=== PATIENT | male | born 1965 | race Caucasian/White ===

== ENCOUNTER → 2021-10-19 | Outpatient (CLI) | payer BC ==
[~2021-10-19] MED LIST: CEPH500 PO; HYDACE5 PO
[2021-10-19 13:15] LABS: BASOPHILS ABSOLUTE AUTO 0.04 K/mm3 (0.00-0.23); BASOPHILS PERCENT AUTO 1 % (0-2); EOSINOPHILS ABSOLUTE AUTO 0.06 K/mm3 (0.00-0.68); EOSINOPHILS PERCENT AUTO 1 % (0-6); Hematocrit 33.7 % (37.0-53.0); Hemoglobin 11.3 g/dL (13.5-17.5); IMMATURE GRAN ABSOLUTE AUTO 0.02 K/mm3 (0.00-0.10); IMMATURE GRAN PERCENT AUTO 0 % (0-1); LYMPHOCYTES ABSOLUTE AUTO 1.75 K/mm3 (0.84-5.20); LYMPHOCYTES PERCENT AUTO 29 % (21-46); MONOCYTES ABSOLUTE AUTO 0.67 K/mm3 (0.16-1.47); MONOCYTES PERCENT AUTO 11 % (4-13); Mean Corpuscular HGB 29.1 pg (26.0-34.0); Mean Corpuscular HGB Conc 33.5 g/dL (31.5-36.5); Mean Corpuscular Volume 87 fL (80-100); NEUTROPHILS ABSOLUTE AUTO 3.48 K/mm3 (1.96-9.15); NEUTROPHILS PERCENT AUTO 58 % (41-73); RDW Coefficient Variation 16.9 % (11.7-14.2); RDW Standard Deviation 52.6 fL (35.1-46.3); Red Blood Cell Count 3.88 M/mm3 (4.30-5.90); White Blood Cell Count 6.02 K/mm3 (4.00-11.30)
[2021-10-19 13:25] LABS: Alanine Aminotransfer (ALT/SGP 52 U/L (12-78); Albumin, Blood 3.7 g/dL (3.4-5.0); Albumin/Globulin Ratio 0.9 (0.8-1.8); Alk Phos 137 U/L (40-126); Anion Gap 15 mmol/L (6-16); Aspartate Aminotrans (AST/SGOT 121 U/L (12-37); Bilirubin, Total 0.7 mg/dL (0.1-1.0); Blood Urea Nitrogen 9 mg/dL (8-24); Bun/Creatinine Ratio 10.5 (12.0-20.0); CO2, Blood 26 mmol/L (21-32); Calcium, Blood 8.7 mg/dL (8.5-10.1); Chloride, Blood 98 mmol/L (98-108); Creatinine, Blood 0.86 mg/dL (0.60-1.20); Glomerular Filtration Rate >60 (60-); Glucose, Blood 122 mg/dL (70-99); Potassium, Blood 3.3 mmol/L (3.5-5.5); Sodium, Blood 139 mmol/L (136-145); Total Protein, Blood 7.7 g/dL (6.4-8.2)
[2021-10-19 13:55] LABS: Platelet Count 84 K/mm3 (150-400)
== END ==
LOC: LAB SHORT 13:10 → LAB 13:10
PROVIDERS: General Practice
DX: S20.212A Contusion of left front wall of thorax, initial encounter (principal)
CPT/HCPCS: 80053; 85025

== ENCOUNTER 2022-12-05 19:25 | Inpatient (IN) | payer OTHER ==
[~2022-12-05] VITALS: Ht 170.2 cm; Wt 70.3 kg
[2022-12-05 19:48] LABS: BASOPHILS ABSOLUTE AUTO 0.01 K/mm3 (0.00-0.23); BASOPHILS PERCENT AUTO 0 % (0-2); EOSINOPHILS PERCENT AUTO 0 % (0-6); Hematocrit 31.9 % (37.0-53.0); Hemoglobin 10.3 g/dL (13.5-17.5); IMMATURE GRAN ABSOLUTE AUTO 0.09 K/mm3 (0.00-0.10); IMMATURE GRAN PERCENT AUTO 1 % (0-1); LYMPHOCYTES ABSOLUTE AUTO 1.37 K/mm3 (0.84-5.20); LYMPHOCYTES PERCENT AUTO 14 % (21-46); MONOCYTES ABSOLUTE AUTO 0.88 K/mm3 (0.16-1.47); MONOCYTES PERCENT AUTO 9 % (4-13); Mean Corpuscular HGB 25.1 pg (26.0-34.0); Mean Corpuscular HGB Conc 32.3 g/dL (31.5-36.5); Mean Corpuscular Volume 78 fL (80-100); Mean Platelet Volume 11.7 fL (9.1-12.4); NEUTROPHILS ABSOLUTE AUTO 7.44 K/mm3 (1.96-9.15); NEUTROPHILS PERCENT AUTO 76 % (41-73); NRBC ABSOLUTE 0.04 K/mm3 (0.00-0.02); NRBC Auto 0.4 /100 WBC (0.0-0.2); Platelet Count 102 K/mm3 (150-400); RDW Coefficient Variation 18.2 % (11.7-14.2); RDW Standard Deviation 49.9 fL (35.1-46.3); White Blood Cell Count 9.79 K/mm3 (4.00-11.30)
[2022-12-05 20:08] LABS: Albumin, Blood 3.7 g/dL (3.4-5.0); Albumin/Globulin Ratio 0.9 (0.8-1.8); Bilirubin, Total 0.7 mg/dL (0.1-1.0); Bun/Creatinine Ratio 20.9 (12.0-20.0); Calcium, Blood 11.8 mg/dL (8.5-10.1); Creatinine, Blood 1.29 mg/dL (0.60-1.20); Globulin, Blood 4.2 g/dL (2.2-4.0); Potassium, Blood 2.7 mmol/L (3.5-5.5); Total Protein, Blood 7.9 g/dL (6.4-8.2)
[2022-12-05 21:57] LABS: International Normalized Ratio 1.04; Prothrombin Time Results 10.9 Sec (9.7-11.5)
[2022-12-06] VITALS (23 sets, daily range): BP systolic 81–154; BP diastolic 58–98
[2022-12-06 00:07] LABS: Calcium, Blood 10.1 mg/dL (8.5-10.1); Creatinine, Blood 1.04 mg/dL (0.60-1.20); Magnesium, Blood 1.9 mg/dL (1.6-2.4); Potassium, Blood 3.1 mmol/L (3.5-5.5)
--- NOTE | 2022-12-06 00:15 | NUR ---
ADMIT NOTE; PT ARRIVES FROM THE ED VIA WHEELCHAIR AND IS ABLE TO AMBULATE WITH A 1 PERSON ASSIST DUE TO TRRMORS. THE PT HAS MODERATE-SEVERE TREMORS ON ADMIT. THE PT ALSO ENDORSES A SLIGHT HEADACHE. THE PT DENIES ANY SOB, CHEST PAIN/PRESSURE OR NAUSEA/VOMITING. THE PT HAS SEIZURE PADS IN PLACE, THE BED IN THE LOWEST POSITION AND BED ALARM ON. THE PT IS CURRENTLY LAYING IN BED WITH THE BED IN THE LOWEST POSITION AND THE CALL LIGHT AT BEDSIDE.
[2022-12-06] MEDS ORDERED: OMEP20ER PO (00:46)
--- NOTE | 2022-12-06 02:11 | NUR ---
IS THE GI DOCTOR SENIOR MECHANICAL ENGINEER TOMORROW. DR. LÓPEZ DOES NOT USE THE ANSWERING SERVICE. BLAKEVTTARAS WILL HAVE TO CALL DR. LÓPEZ DIRECTLY TOMORROW AM FOR A GI CONSULT. WILL RELAY TO DAYSVTFT RN.
[2022-12-06 04:53] LABS: BASOPHILS ABSOLUTE AUTO 0.02 K/mm3 (0.00-0.23); BASOPHILS PERCENT AUTO 0 % (0-2); EOSINOPHILS ABSOLUTE AUTO 0.01 K/mm3 (0.00-0.68); EOSINOPHILS PERCENT AUTO 0 % (0-6); Hematocrit 28.3 % (37.0-53.0); Hemoglobin 9.1 g/dL (13.5-17.5); IMMATURE GRAN ABSOLUTE AUTO 0.07 K/mm3 (0.00-0.10); IMMATURE GRAN PERCENT AUTO 1 % (0-1); LYMPHOCYTES ABSOLUTE AUTO 2.07 K/mm3 (0.84-5.20); LYMPHOCYTES PERCENT AUTO 19 % (21-46); MONOCYTES ABSOLUTE AUTO 1.23 K/mm3 (0.16-1.47); MONOCYTES PERCENT AUTO 11 % (4-13); Mean Corpuscular HGB 24.9 pg (26.0-34.0); Mean Corpuscular HGB Conc 32.2 g/dL (31.5-36.5); Mean Corpuscular Volume 78 fL (80-100); Mean Platelet Volume 11.5 fL (9.1-12.4); NEUTROPHILS ABSOLUTE AUTO 7.64 K/mm3 (1.96-9.15); NEUTROPHILS PERCENT AUTO 69 % (41-73); Platelet Count 87 K/mm3 (150-400); RDW Coefficient Variation 18.1 % (11.7-14.2); RDW Standard Deviation 50.5 fL (35.1-46.3); Red Blood Cell Count 3.65 M/mm3 (4.30-5.90); White Blood Cell Count 11.04 K/mm3 (4.00-11.30)
--- NOTE | 2022-12-06 05:06 | NUR ---
SHIFT SUMMARY; CIWA PT, UPON ADMIT THE PTS CIWA WAS 10, THE PT RECIEVED 1MG OF ATIVAN AND THAT HELPED HIS TREMORS A LITTLE BIT. AFTER REASSESSMENT THE PT RECIEVED 25MG OF LIBRIUM. THE PTS MOST CURRENT CIWA SCORE IS 7. THE PT HASNT BEEN NAUSEOUS, NOR HAS HE EXPERIENCED ANY AUDITORY,VISUAL OR TACTILE DISTURABANCE. THE PTS ONLY WITHDRAWL SYMPTOMS ARE TREMORS AND HEADACHE AT THIS TIME. THE PT HAS DENIED ANY SOB, CHEST PAIN/PRESSURE OR N/V. CURRENTLY THE PT IS SLEEPING IN BED WITH THE BED IN THE LOWEST POSITION AND THE CALL LIGHT AT BEDSIDE. THE PT IS NPO.
[2022-12-06 05:11] LABS: Albumin, Blood 3.1 g/dL (3.4-5.0); Albumin/Globulin Ratio 0.9 (0.8-1.8); Bilirubin, Total 0.8 mg/dL (0.1-1.0); Calcium, Blood 9.8 mg/dL (8.5-10.1); Creatinine, Blood 0.96 mg/dL (0.60-1.20); Globulin, Blood 3.5 g/dL (2.2-4.0); Magnesium, Blood 1.6 mg/dL (1.6-2.4); Potassium, Blood 3.4 mmol/L (3.5-5.5); Total Protein, Blood 6.6 g/dL (6.4-8.2)
--- NOTE | 2022-12-06 14:09 | NUR ---
12/06/22 1409 David Aguilar [address]IA PER [address] MORROW
--- NOTE | 2022-12-06 16:26 | NUR ---
TRANSFER/SHIFT SUMMARY PATIENT IS ALERT AND ORIENTED TO SELF. PATIENT WENT DOWN FOR AN EGD, SEE REPORT. PATIENT HAS BEEN MEDICATED FOR CIWAS OF 10-14. PATIENT IS TRANSFERRED TO PCU FOR CIWA OF 14 AFTER MEDICATION AND PATIENT TRYING TO CLIMB OUT OF BED FREQUENTLY. UPDATED OF PLAN TO TRANSFER PATIENT TO HIGHER LEVEL OF CARE. REPORT TO PAMELLA DENTON GIVEN.
--- NOTE | 2022-12-06 17:16 | NUR ---
TRANSFER: Pt arrived to ICU 1705. posy vest in place. pt alert but confused.
--- NOTE | 2022-12-06 17:28 | NUR ---
PT TRANSFERED FROM ROOM 357 ON MEDICAL FLOOR TO PCU ROOM 2. HYPERBARIC NURSE DECLAN AT ROOM TO GREET PATIENT UPON ARRIVAL TO THE UNIT. THIS RN ARRIVED TO ROOM SHORTLY AFTER ARRIVAL TO FIND PT ALERT, CONFUSED, ORIENTED TO SELF. PT IS VERY AGITATED, ATTEMPTING TO EXIT THE BED, KICKING AND AT AND THROWING HANDS AT STAFF. CIWA WAS REPORTED TO THIS RN FROM MEDICAL FLOOR RN 15, UPON ARRIVAL PT'S CIWA APPEARS TO BE HIGHER THAN 15. MULTIPLE STAFF TO ROOM TO MAINTAIN SAFETY OF PT AND STAFF. LEFT AC IV NOTED TO BE LEAKING AND BLEEDING, APPEARS TO HAVE BEEN LEAKING AND BLEEDING FOR A LENGTH OF TIME THERE WAS A LARGE POOL OF BLOOD AND FLUID UNDER THE PATIENT UPON ARRIVAL, THIS IV WAS REMOVED AND PRESSURE DRESSED, THERE DOES APPEAR TO BE SOME MILD INFILTRATION TO THE SITE, THERE HAD BEEN OCTREOTIDE IFUSING TO THIS IV WHEN HE ARRIVED TO THE PCU. A NEW IV WAS PLACED BY TIERA DENTON IMMEDIATELY UPON ARRIVAL TO RIGHT AC, 4MG ATIVAN IVP WHICH HAD VERY LITTLE AFFECT ON PT. CIWA WAS QUICKLY CALCULATED TO BE GREATER THAN 20, LIBRIUM WAS GIVEN PO ALSO WITH NO AFFECT. SECURITY WAS CALLED TO THE ROOM PT AGAIN BECAME COMBATIVE PT WAS ATTEMPTING TO BITE THIS RN, HE WAS KICKING AND HITTING AT STAFF. SECURITY TO ROOM TO MAINTAIN PATIENT AND STAFF SAFETY. ADDITIONAL 4MG ATIVAN WAS ADMINISTERED ALSO WITH MINIMAL AFFECT. HIS CIWA IS CONFIRMED TO BE 22 AFTER 8MG TOTAL OF ATIVAN AND 50MG OF LIBRIUM THE DECISION WAS MADE UPON SPEAKING WITH DR DOLL TO TRANSFER PATIENT TO ICU FOR A HIGHER LEVEL OF CARE. REPORT GIVEN TO JACKSON DENTON IN ICU. PT TRANSFERED TO ICU 15.
--- NOTE | 2022-12-06 18:51 | NUR ---
SHIFT SUMMARY: Pt transferred to ICU for precedex drip. He arrived with posy vest in place; this was quickly removed. Pt now resting in bed with sister at bedside. She has updated pt's . Octreotide drip discontinued.
--- NOTE | 2022-12-06 20:27 | NUR ---
PATIENT SLEEPING WITH SNORING OFF AND ON. OXYGEN 2L/NC BIOX 92-99%. SLEEPING DURING LAB DRAW AND IV START. HYPOTENSION. PRECEDEX TITRATING DOWN ABLE. AWAKENS TO AGGRESSIVE STIMULI, QUICK TO ANGER, VERBALIZED "LET ME SLEEP". PATIENT NPO DUE TO RISK FOR ASPIRATION, DOCTOR SHARMILA NOTIFIED AND POTASSIUM CHANGED TO IV.
--- NOTE | 2022-12-06 22:55 | NUR ---
PATIENT APPEARS TO BE SLEEPING, YET SITTING UP IN BED, THROWING BLANKETS OFF, AND MOUTHING WORDS. HEART RATE UP 120'S AND RESP UP TO 24. THIS ALL STARTING AFTER GIVING ATIVAN AND RESTARTING PRECEDEX. PRECEDEX TITRATED OFF.
[2022-12-07] VITALS (41 sets, daily range): BP systolic 85–132; BP diastolic 60–108
[2022-12-07 03:35] LABS: BASOPHILS ABSOLUTE AUTO 0.02 K/mm3 (0.00-0.23); BASOPHILS PERCENT AUTO 0 % (0-2); EOSINOPHILS ABSOLUTE AUTO 0.05 K/mm3 (0.00-0.68); EOSINOPHILS PERCENT AUTO 1 % (0-6); Hematocrit 29.2 % (37.0-53.0); Hemoglobin 9.1 g/dL (13.5-17.5); IMMATURE GRAN ABSOLUTE AUTO 0.04 K/mm3 (0.00-0.10); IMMATURE GRAN PERCENT AUTO 1 % (0-1); LYMPHOCYTES ABSOLUTE AUTO 1.01 K/mm3 (0.84-5.20); LYMPHOCYTES PERCENT AUTO 13 % (21-46); MONOCYTES ABSOLUTE AUTO 0.67 K/mm3 (0.16-1.47); MONOCYTES PERCENT AUTO 9 % (4-13); Mean Corpuscular HGB 25.1 pg (26.0-34.0); Mean Corpuscular HGB Conc 31.2 g/dL (31.5-36.5); Mean Corpuscular Volume 81 fL (80-100); NEUTROPHILS ABSOLUTE AUTO 5.93 K/mm3 (1.96-9.15); NEUTROPHILS PERCENT AUTO 77 % (41-73); Platelet Count 96 K/mm3 (150-400); RDW Coefficient Variation 18.3 % (11.7-14.2); RDW Standard Deviation 52.2 fL (35.1-46.3); Red Blood Cell Count 3.62 M/mm3 (4.30-5.90); White Blood Cell Count 7.72 K/mm3 (4.00-11.30)
[2022-12-07 03:48] LABS: Albumin, Blood 2.9 g/dL (3.4-5.0); Albumin/Globulin Ratio 0.9 (0.8-1.8); Bilirubin, Total 0.6 mg/dL (0.1-1.0); Bun/Creatinine Ratio 24.3 (12.0-20.0); Calcium, Blood 9.1 mg/dL (8.5-10.1); Creatinine, Blood 0.86 mg/dL (0.60-1.20); Globulin, Blood 3.4 g/dL (2.2-4.0); Potassium, Blood 3.8 mmol/L (3.5-5.5); Total Protein, Blood 6.3 g/dL (6.4-8.2)
--- NOTE | 2022-12-07 06:14 | NUR ---
SUMMARY PATIENT SLEEPING T/O NIGHT, AWAKENS WITH SLIGHT STIMULI. PATIENT ANGRY WHEN AWAKE DESPITE ATTEMPTING TO REASSURE AND REORIENTATION. PRECEDEX 0.2 INFUSING TO HELP WITH ETOH WITHDRAWAL. WHEN AWAKE TREMOR SEEN IN BOTH ARMS, RIGHT MORE THAN LEFT. CONDOM CATH AND ATTENDS IN PLACE DUE TO INCONT.
--- NOTE | 2022-12-07 09:25 | NUR ---
Assumed care at approximately 0700. Bedside report received from radha DENTON. Pt sleeping at time of report, on at 2 L/min via NC. Precedex infusing at 0.2 mcg/kg/hr. Condom cath in place. No acute needs at time of report, will continue to monitor.
--- NOTE | 2022-12-07 18:34 | NUR ---
Shift summary. Pt rested in bed throughout shift. Status changed to PCU this afternoon. Pt improved since beginning of shift, last CIWA score 8. Precedex titrated off this am at 0830, DC'd this afternoon. Pt alert and oriented, on RA. Diet advanced from clear liquid to regular adult for tomorrow morning. Condom cath still in place. No acute events this shift, see assessment/chart for further details. Will continue to monitor and report off to radha DENTON.
--- NOTE | 2022-12-07 20:20 | NUR ---
PATIENT AWAKE WATCHING TV, NO C/O NAUSEA. PATIENT CARLITOS DINNER WELL. A&O X3, ABLE TO ASSIST WITH REPOSITIONING AND ABLE TO BRUSH TEETH AFTER BEING SET UP. TREMOR SEEN TO BOTH ARMS WITH ACTIVITY, PATIENT VERBALIZED THAT HE HAS TREMOR AT HOME ALSO.
[2022-12-08 03:33] LABS: BASOPHILS ABSOLUTE AUTO 0.03 K/mm3 (0.00-0.23); BASOPHILS PERCENT AUTO 1 % (0-2); EOSINOPHILS ABSOLUTE AUTO 0.12 K/mm3 (0.00-0.68); EOSINOPHILS PERCENT AUTO 2 % (0-6); Hematocrit 29.5 % (37.0-53.0); Hemoglobin 9.4 g/dL (13.5-17.5); IMMATURE GRAN ABSOLUTE AUTO 0.06 K/mm3 (0.00-0.10); IMMATURE GRAN PERCENT AUTO 1 % (0-1); LYMPHOCYTES ABSOLUTE AUTO 1.52 K/mm3 (0.84-5.20); LYMPHOCYTES PERCENT AUTO 25 % (21-46); MONOCYTES PERCENT AUTO 12 % (4-13); Mean Corpuscular HGB 25.8 pg (26.0-34.0); Mean Corpuscular HGB Conc 31.9 g/dL (31.5-36.5); Mean Corpuscular Volume 81 fL (80-100); Mean Platelet Volume 11.3 fL (9.1-12.4); NEUTROPHILS ABSOLUTE AUTO 3.58 K/mm3 (1.96-9.15); NEUTROPHILS PERCENT AUTO 60 % (41-73); NRBC ABSOLUTE 0.02 K/mm3 (0.00-0.02); NRBC Auto 0.3 /100 WBC (0.0-0.2); Platelet Count 118 K/mm3 (150-400); RDW Coefficient Variation 19.1 % (11.7-14.2); RDW Standard Deviation 52.6 fL (35.1-46.3); Red Blood Cell Count 3.65 M/mm3 (4.30-5.90); White Blood Cell Count 6.01 K/mm3 (4.00-11.30)
[2022-12-08 03:46] LABS: Bun/Creatinine Ratio 18.2 (12.0-20.0); Calcium, Blood 8.7 mg/dL (8.5-10.1); Creatinine, Blood 0.82 mg/dL (0.60-1.20); Potassium, Blood 3.4 mmol/L (3.5-5.5)
[2022-12-08 04:23] VITALS: BP 128/81
--- NOTE | 2022-12-08 05:46 | NUR ---
SUMMARY PATIENT SLEEPING OFF AND ON T/O NIGHT. REMAINING A&O T/O NIGHT. TREMOR TO BOTH ARMS CONTINUES, PATIENT VERBALIZED THAT HE HAS THESE TREMORS AT HOME ALSO. PATIENT REPOSITIONING SELF IN BED FOR COMFORT. CONDOM CATH OFF AND ATTENDS REMAIN IN PLACE, URINAL AT BEDSIDE. PATIENT VERBALIZED UNDERSTANDING TO NOT GET UP WITHOUT CALLING FOR ASSISTANCE
[2022-12-08 08:58] VITALS: BP 107/73
--- NOTE | 2022-12-08 09:00 | NUR ---
INITIAL ASSESSMENT PATIENT ALERT AND ORIENTED X 4, ALTHOUGH IS FORGETFUL AT TIMES. PATIENT AFEBRILE. PATIENT DENIES PAIN. PATIENT WITHDRAWN AND WITH FLAT AFFECT. CIWA SCORE OF 5 THIS AM. PATIENT WEAK AND UNSTEADY ON FEET. TREMORS NOTED. PATIENT STATES HE HAS TREMORS AT HOME TOO AND THAT THEY ARE WORSE IN THE MORNINGS. PATIENT SATTING 90% AND GREATER ON RA. PATIENT IN ST, HR IN THE LOW 100S. SBP IN THE LOW 100S. SCDS IN PLACE. GI WNL. ATTENDS IN PLACE FOR URINARY INCONTINENCE. SKIN APPEARS WNL. PATIENT IS REPOSITIONING OWN HIPS IN BED. BED LOW, CALL LIGHT IN REACH. WILL CONTINUE TO MONITOR PATIENT FREQUENTLY THROUGHOUT SHIFT.
[2022-12-08 12:27] VITALS: BP 92/62
--- NOTE | 2022-12-08 12:30 | NUR ---
PATIENT AFEBRILE. HR IN THE LOW 100S. SBP IN THE 90S. CIWA SCORE OF 4. NO OTHER ACUTE CHANGES TO NOTE ON AT THIS TIME. WILL CONTINUE TO MONITOR.
[2022-12-08 16:36] VITALS: BP 126/83
--- NOTE | 2022-12-08 16:40 | NUR ---
PATIENT WATCHING TV QUIETLY IN BED. CIWA SCORE OF 4 FOR TREMORS. PATIENT LESS ANXIETY THAN THIS AM. PRN LIBRIUM SEEMED TO HELP. HR IN THE 70S. SBP IN THE 120S. NO OTHER ACUTE CHANGES TO NOTE ON AT THIS TIME. WILL CONTINUE TO MONITOR.
--- NOTE | 2022-12-08 19:02 | NUR ---
SHIFT SUMMARY PATIENT REMAINED ALERT AND ORIENTED X 4, HOWEVER FORGETFUL AT TIMES. PATIENT REMAINS VERY UNSTEADY ON FEET AND OVERESTIMATES HIS ACTIVITY/ AMBULATION ABILITIES. CIWAS RANGED 4 TO 5. PATIENT DENIED PAIN ALL SHIFT. PATIENT REMAINED AFEBRILE. PATIENT CONTINUED TO HAVE TREMORS BUT DID IMPROVE. PATIENT REMAINED ON RA. PATIENT REMAINED SR TO ST, HR 70S TO LOW 100S. SBP 90S TO 120S. NO BM THIS SHIFT. PATIENT TOLERATED REGULAR DIET WELL. ADEQUATE URINE OUTPUT. RECEIVED 20 MEQ KDUR THIS AM FOR POTASSIUM OF 3.4. PATIENT WORKED WITH PT AND OT. FAMILY IN TO VISIT DURING DAY. BED LOW, CALL LIGHT IN REACH. REPORT GIVEN TO ASSUMING TRANSACTION PROCESSOR NURSE.
[2022-12-08 19:49] VITALS: BP 114/76
--- NOTE | 2022-12-08 20:34 | NUR ---
PATIENT VISITING WITH FAMILY. C/O PETERS, TREMORS TO UPPER EXTREMITIES CONTINUES. TYLENOL AND LIBRIUM PO GIVEN. WHEN STANDING PATIENT HAS POOR BALANCE, PATIENT IMPULSIVE GETTING OUT OF BED WITHOUT CALLING FOR ASSISTANCE, WHEN ASKED WHY HE DIDN'T CALL FOR ASSISTANCE HE SAID "YOU LOOKED BUSY" EXPLAINED AGAIN TO PATIENT THAT HE NEEDED TO HAVE NURSING STAFF WITH HIM WHEN HE GETS UP DUE TO HIS HIGH FALL RISK. PATIENT VERBALIZED UNDERSTANDING AND DEMONSTRATED USE OF CALL LIGHT. BED ALARM SET.
--- NOTE | 2022-12-08 22:01 | NUR ---
PLAN TO TRANSFER PATIENT TO PCU 10, PATIENT CONTINUES TO BE IMPULSIVE. BED ALARM ON AND CALL LIGHT IN REACH.
[2022-12-08 22:36] VITALS: BP 112/79
[2022-12-09 00:07] VITALS: BP 106/70
[2022-12-09 04:22] LABS: BASOPHILS ABSOLUTE AUTO 0.02 K/mm3 (0.00-0.23); BASOPHILS PERCENT AUTO 0 % (0-2); EOSINOPHILS ABSOLUTE AUTO 0.14 K/mm3 (0.00-0.68); EOSINOPHILS PERCENT AUTO 2 % (0-6); Hematocrit 30.6 % (37.0-53.0); Hemoglobin 9.5 g/dL (13.5-17.5); IMMATURE GRAN ABSOLUTE AUTO 0.09 K/mm3 (0.00-0.10); IMMATURE GRAN PERCENT AUTO 1 % (0-1); LYMPHOCYTES ABSOLUTE AUTO 1.69 K/mm3 (0.84-5.20); LYMPHOCYTES PERCENT AUTO 25 % (21-46); MONOCYTES ABSOLUTE AUTO 0.95 K/mm3 (0.16-1.47); MONOCYTES PERCENT AUTO 14 % (4-13); Mean Corpuscular HGB 25.4 pg (26.0-34.0); Mean Corpuscular Volume 82 fL (80-100); Mean Platelet Volume 11.3 fL (9.1-12.4); NEUTROPHILS ABSOLUTE AUTO 3.91 K/mm3 (1.96-9.15); NEUTROPHILS PERCENT AUTO 57 % (41-73); Platelet Count 153 K/mm3 (150-400); RDW Coefficient Variation 19.1 % (11.7-14.2); RDW Standard Deviation 54.4 fL (35.1-46.3); Red Blood Cell Count 3.74 M/mm3 (4.30-5.90)
[2022-12-09 04:48] LABS: Bun/Creatinine Ratio 14.9 (12.0-20.0); Calcium, Blood 8.9 mg/dL (8.5-10.1); Creatinine, Blood 0.8 mg/dL (0.60-1.20); Potassium, Blood 3.5 mmol/L (3.5-5.5)
[2022-12-09 04:56] VITALS: BP 112/77
--- NOTE | 2022-12-09 06:26 | NUR ---
SHIFT SUMMARY PATIENT TRANSFERRED TO PCU 10 FROM ICU 3. HE IS ALERT AND ORIENTED X3, FORGETFUL AND OCCASIONALLY IMPULSIVE. PATIENT ENDED UP PULLING BOTH HIS IV'S OUT AND ANY LEADS ATTACHED TO HIM OFF. PATIENT PLACED ON CAMERA FOR CLOSER OBSERVATION. SPO2 >90% ON ROOM AIR, VITAL SIGNS STABLE. NO ACUTE ISSUES NOTED OVERNIGHT. WILL CONTINUE TO MONITOR. BED ALARM ON, CALL LIGHT WITHIN REACH.
[2022-12-09 07:29] VITALS: BP 112/73
--- NOTE | 2022-12-09 08:51 | NUR ---
care assumption pt a&ox, vss. pt states he is going home when gets here. agitated. set off alarm this am getting up w/o using call light. Pt states, "what is all this sh*t?" pointing to IV, Tele. Explained what they are for. Pt refuses medications, see emar. Pt's called for update. Updated that pt is refusing medications. Pt's states she will call pt and try to help. Pt refused OT this am. Call light in reach. bed alarm on. Camera on.
[2022-12-09] MEDS ORDERED: Acetaminophen325 M1 PO (09:15)
[2022-12-09] MEDS ORDERED: MULVITA PO (09:16)
[2022-12-09] MEDS ORDERED: PANT40 PO (09:17)
[2022-12-09 11:21] VITALS: BP 122/81
== END 2022-12-09 13:20 | disposition home or self-care (01) | DRG 382 ==
LOC: ER 19:25 → ICUE 23:45 → MEDS 23:45 → PCU 12-06 16:12 → ICUE 12-06 17:06 → PCU 12-08 22:19
PROVIDERS: Emergency Medicine; Internal Medicine; Internal Medicine Gastroenterology; ADMIT Student in an Organized Health Care Education/Training Program
PROC: HZ2ZZZZ Detoxification Services for Substance Abuse Treatment (ICD-10-PCS; 2022-12-05)
PROC: 0DJ08ZZ Inspection of Upper Intestinal Tract, Via Natural or Artificial Opening Endoscopic (ICD-10-PCS; principal; 2022-12-06 12:00)
DX: K22.11 Ulcer of esophagus with bleeding (principal); E87.6 Hypokalemia; K29.20 Alcoholic gastritis without bleeding; E83.42 Hypomagnesemia; D69.6 Thrombocytopenia, unspecified; K21.01 Gastro-esophageal reflux disease with esophagitis, with bleeding; D64.9 Anemia, unspecified; K44.9 Diaphragmatic hernia without obstruction or gangrene; F10.229 Alcohol dependence with intoxication, unspecified; R00.0 Tachycardia, unspecified; K70.10 Alcoholic hepatitis without ascites; F17.200 Nicotine dependence, unspecified, uncomplicated; Z79.2 Long term (current) use of antibiotics; Z79.891 Long term (current) use of opiate analgesic; Z79.899 Other long term (current) drug therapy
CPT/HCPCS: 36415; 71045; 76705; 80048; 80053; 83735; 84484; 85025; 85610; 85730; 86850; 86900; 86901; 93005; 93010; 96361; 96374; 96375; 96376; 97110; 97116; 97162; 97166; 97535; 99285-25; A9270; C9113; G0480; J0696; J2001; J2060; J2354; J2704; J3411; J3475; J3480; J7030; J7050; J7120

== ENCOUNTER → 2023-04-25 | Outpatient (CLI) | payer OTHER ==
[~2023-04-25] MED LIST changes: +Acetaminophen325 M1 PO; +MULVITA PO; +OMEP20ER PO; +PANT40 PO
[2023-04-27 11:35] LABS: Stool Occult Bld Immuno 1 Negative (NEGATIVE)
== END ==
LOC: LAB SHORT 16:00 → LAB 16:00
PROVIDERS: Family Medicine
DX: Z12.11 Encounter for screening for malignant neoplasm of colon (principal)
CPT/HCPCS: G0328

== ENCOUNTER → 2023-08-06 | Outpatient (CLI) | payer OTHER ==
[2023-08-06 15:39] LABS: Source, Urine Clean Catch
[2023-08-06 18:34] LABS: Appearance, Urine Clear (Clear); Bilirubin, Urine Neg (Neg); Blood, Urine Neg (Neg); Color, Urine Amber (P-Yellow); Glucose Qualitative, Urine Neg (Neg); Ketones, Urine Neg (Neg); Leukocyte Esterase, Urine Neg (Neg); Nitrite, Urine Neg (Neg); Protein, Urine 1+ (Neg); Urobilinogen, Urine NORM (Normal)
== END ==
LOC: LAB 15:36 → LAB SHORT 15:36
PROVIDERS: Family Medicine
DX: K21.9 Gastro-esophageal reflux disease without esophagitis (principal); R35.0 Frequency of micturition
CPT/HCPCS: 87338